=== PATIENT | female | born 1995 | race Two or more races ===

== ENCOUNTER 2021-05-22 00:13 | Inpatient (IN) | payer MEDICAID ==
[~2021-05-22] VITALS: Ht 165.1 cm; Wt 54.5 kg
[2021-05-22] MEDS ORDERED: naloxone 2mg/2ml inj IV STA (01:01)
[2021-05-22] MEDS ORDERED: ondansetron/PF 4mg/2ml inj IV ONE ×2 (01:05)
[2021-05-22] MEDS ORDERED: morphine 4 MG/ML inj SYRINge IV ONE (01:05)
[2021-05-22] MEDS ORDERED: iohexol 350MG/ML 100ml bottle IV ONE (01:13)
[2021-05-22] MEDS ORDERED: propofol 1000mg/100ml bottle 100 ML IV SCH (01:15)
[2021-05-22 01:22] LABS: CLARITY,URINE CLOUDY (Clear); COLOR,URINE YELLOW (Yellow); GLUCOSE, URINE NEGATIVE (Neg); KETONES,URINE NEGATIVE (Neg); LEUKOCYTE ESTERASE ,URINE NEGATIVE (Neg); NITRITES, URINE NEGATIVE (Neg); OCCULT BLOOD,URINE SMALL (Neg); PROTEIN,URINE 100 mg/dl (Neg); URINE HCG NEGATIVE (NEG); UROBILINOGEN,URINE 0.2 E.U/dL (0.2-1.0)
--- NOTE | 2021-05-22 01:36 | NUR ---
PT'S EMERGENCY CONTACTS CALLED, NUMBER FOR [facility] IS DISCONNECTED. PT'S FRIEND DESTINY GUZMÁN WAS CALLED TO NOTIFY FAMILY THAT PT WAS IN THE HOSPITAL AND NOW INTUBATED.
[2021-05-22 01:42] LABS: UA COLLECTION TYPE STRAIGHT CATH
[2021-05-22 01:55] LABS: SQUAMOUS EPITHELIAL CELL,UR FEW /LPF (FEW)
[2021-05-22 01:57] LABS: HYALINE CASTS 0-3 /LPF (NEGATIVE); TRANSITIONAL EPI CELLS,URINE FEW /HPF
[2021-05-22 02:00] LABS: RENAL CELLS, URINE MODERATE /HPF
[2021-05-22] MEDS ORDERED: sodium bicarbonate (8.4%) 1 mEq/ml syringe IV ONE ×4 (02:00→05:25)
[2021-05-22 02:02] LABS: BACTERIA,URINE 1+ /HPF (Neg)
[2021-05-22 02:03] LABS: WBC CLUMPS,URINE MODERATE /HPF (NEGATIVE)
[2021-05-22] MEDS ORDERED: sodium bicarbonate (8.4%) inj. 1 MEQ/ML ML ONE (02:03)
[2021-05-22] MEDS ORDERED: sodium bicarbonate (8.4%) inj. 150 MEQ in dextrose 5%-water 1,000 ML IV SCH (02:05)
[2021-05-22 02:16] LABS: BASOPHILS # (AUTO) 0.1 X10'3 (0-0.2); BASOPHILS % (AUTO) 0.3 % (0-1); EOSINOPHILS % (AUTO) 0.1 % (0-6); LYMPHOCYTES # (AUTO) 3.4 X10'3 (1.1-4.8); LYMPHOCYTES % (AUTO) 14.1 % (21-51); MEAN PLATELET VOLUME 8.6 FL (7.4-10.4); MONOCYTES # (AUTO) 1.1 X10'3 (0-0.9); MONOCYTES % (AUTO) 4.8 % (2-12); NEUTROPHILS # (AUTO) 19.5 X10'3 (1.8-7.7); NEUTROPHILS % (AUTO) 80.7 % (42-75); WHITE BLOOD COUNT 24.2 X10'3 (4.5-11.0)
[2021-05-22 02:25] LABS: URINE AMPHETAMINE SCREEN POSITIVE (Neg); URINE BARBITUATE SCREEN NEGATIVE (Neg); URINE BENZODIAZEPINES SCREEN NEGATIVE (Neg); URINE CANNABINOID SCREEN POSITIVE (Neg); URINE COCAINE SCREEN NEGATIVE (Neg); URINE METHADONE SCREEN NEGATIVE (Neg); URINE PHENCYCLIDINE SCREEN NEGATIVE (Neg)
[2021-05-22 02:26] LABS: URINE OPIATE SCREEN POSITIVE (Neg)
--- NOTE | 2021-05-22 02:28 | NUR ---
GASTROCCULT TEST POSITIVE
[2021-05-22 02:35] LABS: ACETAMINOPHEN 2.5 UG/ML (10-30); ALBUMIN 1.9 G/DL (3.4-5.0); ALKALINE PHOSPHATASE 157 IU/L (46-116); ANION GAP 30 (8-16); BLOOD UREA NITROGEN 35 MG/DL (7-18); CHLORIDE 102 MMOL/L (99-107); CREATININE 2.92 MG/DL (0.40-0.90); ETHANOL < 0.010 GM/DL (0.0-0.010); POTASSIUM 5.7 MMOL/L (3.5-5.1); SODIUM 138 MMOL/L (135-145); TRIGLYCERIDES 89 MG/DL (20-135); eGFR 20 ML/MIN
--- NOTE | 2021-05-22 02:50 | NUR ---
code blue for pt at 0108. see code blue sheet for meds given.
[2021-05-22 02:52] LABS: GASTRIC OCCULT BLOOD POSITIVE (Neg)
[2021-05-22 02:53] LABS: OCCULT BLOOD STOOL POSITIVE (Neg)
[2021-05-22 03:06] LABS: D-DIMER 30.92 MG/L FEU (0-0.50)
[2021-05-22 03:08] LABS: PARTIAL THROMBOPLASTIN TIME 128 SECONDS (22-32)
[2021-05-22 03:11] LABS: ABG BASE EXCESS -31.2 mmol/L (-2.0-2.0); ABG HCO3 2.7 mmol/L (22.0-26.0); ABG OXYGEN SATURATION 96.7 % (94-97); ABG PCO2 (T) 20.1 mmHg (32.0-45.0); ABG PO2 (T) 150.3 mmHg (75.0-100.0); FCOHb 0.8 % (0.0-3.9); FMetHb 0.4 % (0.0-1.5); FO2Hb 95.5 % (94-97); PATIENT TEMPERATURE 33.6; PEEP 5 cm H2O; RESPIRATORY RATE 26 b/min; TIDAL VOLUME 550 mL; TOTAL HEMOGLOBIN 6.6 G/dl (12.0-16.0)
[2021-05-22 03:18] LABS: ALANINE AMINOTRANSFERASE 2244 U/L (12-78); ALBUMIN/GLOBULIN RATIO 0.6 (1.1-1.5); ASPARTATE AMINO TRANSFERASE > 7000 U/L (10-37); BILIRUBIN,TOTAL 1.8 MG/DL (0.1-1.0); CALCIUM 9.8 MG/DL (8.5-10.1); GLUCOSE 95 MG/DL (70-104); TOTAL PROTEIN 5.3 G/DL (6.4-8.2)
[2021-05-22 03:22] LABS: TOTAL CARBON DIOXIDE 6.3 MMOL/L (24-32)
--- NOTE | 2021-05-22 03:22 | NUR ---
upon stabilization of the pt we initiated temperature management of the patient. at 0230 core temp of the patient was 33.6 with goal of getting pt down to 33.0 C to sustain for 24 hours unless otherwise notified by the pt's physician.
[2021-05-22] MEDS ORDERED: NORepinephrine 8mg/ 250ml NS 250 ML IV SCH (03:25)
[2021-05-22 03:31] LABS: RED BLOOD COUNT 2.41 X10'6 (4.20-5.60)
[2021-05-22 03:32] LABS: MEAN CORPUSCULAR HEMOGLOBIN 26.1 PG (27.0-31.0); MEAN CORPUSCULAR HGB CONC 31.6 g/dL (33.0-36.5); MEAN CORPUSCULAR VOLUME 82.4 FL (78-98); RED CELL DISTRIBUTION WIDTH 26.1 % (11.5-14.5)
[2021-05-22 03:36] LABS: HEMATOCRIT 19.9 % (35.0-45.0); HEMOGLOBIN 6.3 g/dl (12.0-16.0)
[2021-05-22 03:37] LABS: PLATELET COUNT 38 X10'3 (140-440)
[2021-05-22 03:45] LABS: ANISOCYTOSIS 2+; PLATELET ESTIMATE DECREASED; TOTAL CELLS COUNTED 100
[2021-05-22 03:46] LABS: BURR CELLS 2+; POLYCHROMASIA FEW
[2021-05-22 03:49] LABS: ELLIPTOCYTES FEW; TOXIC GRANULATION 1+; TOXIC VACUOLATION 2+
[2021-05-22 03:49] LABS: HCG SERUM QL NEGATIVE
[2021-05-22 04:15] VITALS: BP 99/16
[2021-05-22] MEDS ORDERED: tranexamic acid 100mg/ml inj. IV ONE (04:15)
[2021-05-22] MEDS ORDERED: TRANEXAMIC ACID 1 GM IN NACL,ISO-OS 100 ML IV ONE (04:25)
[2021-05-22 04:45] LABS: C-REACTIVE PROTEIN 14.82 MG/DL (0.0-0.5); LACTATE DEHYDROGENASE 5465 U/L (81-234)
[2021-05-22 05:12] LABS: ABG BASE EXCESS -32.5 mmol/L (-2.0-2.0); ABG HCO3 2.1 mmol/L (22.0-26.0); ABG OXYGEN SATURATION 93.5 % (94-97); ABG PCO2 (T) 14.7 mmHg (32.0-45.0); ABG PO2 (T) 95.2 mmHg (75.0-100.0); FMetHb 0.2 % (0.0-1.5); FO2Hb 93.3 % (94-97); PEEP 5 cm H2O; RESPIRATORY RATE 26 b/min; TIDAL VOLUME 550 mL; TOTAL HEMOGLOBIN 8.6 G/dl (12.0-16.0)
[2021-05-22 05:18] LABS: FERRITIN 6121 NG/ML (8-252)
--- NOTE | 2021-05-22 07:08 | NUR ---
PT WENT INTO [facility] AND SUBSEQUENT ASYSTOLE. DR JARA CALLED THE TIME OF AT 0532 TODAY. I CALLED THE [employer] AND THEY ARE COMING TO [facility] WITH AN UNKNOWN ETA. ALSO, CALLED [employer] AND THEY ARE NOT PICKING UP BODY FOR THE DONATION NETWORK. LASTLY, CALLED FAMILY WITH NO SUCCESS. THE POLICE HAVE BEEN SENT TO STOP BY TO SEE IF ANY FAMILY ARE HOME.
--- NOTE | 2021-05-22 07:48 | NUR ---
RAJEEV ARRIVED AT BEDSIDE.
[2021-05-22] MEDS ORDERED: PERFLUTREN PROTEIN-A MICROSPHR (Optison) 0.22 MG/ML 3ML VIAL IV ONE (08:00)
[2021-05-22] MEDS ORDERED: famotidine/PF 10 mg/ml inj IV SCH (08:00)
--- NOTE | 2021-05-22 10:41 | NUR ---
ИВАН APONTE CALL WAS MADE TO FAMILY BY [employer] REQUESTING THAT FAMILY CALL [facility]. PT FATHER CALLED AND WAS NOTIFIED THAT HIS DAUGHTER WAS BROUGHT IN AND HAD THIS MORNING. FATHER HUNG UP DURING NOTIFICATION AND WAS NOT GIVEN INFORMATION REGARDING PT BEING AT THE [facility]S OFFICE. DR HERNANDEZ WAS NOTIFIED OF PHONE CALL.
== END 2021-05-23 16:47 | DRG 816 ==
LOC: ER 00:14 → EDBD 00:14 → ED HOLD 03:21
PROVIDERS: ADMIT Internal Medicine Critical Care Medicine; ATTEND Internal Medicine Critical Care Medicine
PROC: 5A1935Z Respiratory Ventilation, Less than 24 Consecutive Hours (ICD-10-PCS; principal; 2021-05-22)
PROC: 5A12012 Performance of Cardiac Output, Single, Manual (ICD-10-PCS; 2021-05-22)
PROC: 0BH17EZ Insertion of Endotracheal Airway into Trachea, Via Natural or Artificial Opening (ICD-10-PCS; 2021-05-22)
PROC: 30233N1 Transfusion of Nonautologous Red Blood Cells into Peripheral Vein, Percutaneous Approach (ICD-10-PCS; 2021-05-22)
PROC: 30233R1 Transfusion of Nonautologous Platelets into Peripheral Vein, Percutaneous Approach (ICD-10-PCS; 2021-05-22)
PROC: 0D9670Z Drainage of Stomach with Drainage Device, Via Natural or Artificial Opening (ICD-10-PCS; 2021-05-22)
PROC: 06HY33Z Insertion of Infusion Device into Lower Vein, Percutaneous Approach (ICD-10-PCS; 2021-05-22)
PROC: 04HY32Z Insertion of Monitoring Device into Lower Artery, Percutaneous Approach (ICD-10-PCS; 2021-05-22)
PROC: 4A133B1 Monitoring of Arterial Pressure, Peripheral, Percutaneous Approach (ICD-10-PCS; 2021-05-22)
PROC: 4A133J1 Monitoring of Arterial Pulse, Peripheral, Percutaneous Approach (ICD-10-PCS; 2021-05-22)
DX: T40.1X1A Poisoning by heroin, accidental (unintentional), initial encounter (principal); D65 Disseminated intravascular coagulation [defibrination syndrome]; I46.9 Cardiac arrest, cause unspecified; N17.9 Acute kidney failure, unspecified; E87.4 Mixed disorder of acid-base balance; K92.2 Gastrointestinal hemorrhage, unspecified; N93.9 Abnormal uterine and vaginal bleeding, unspecified; Z20.822 Contact with and (suspected) exposure to COVID-19; F15.10 Other stimulant abuse, uncomplicated; E87.5 Hyperkalemia; F12.10 Cannabis abuse, uncomplicated; R74.01 Elevation of levels of liver transaminase levels; Y92.89 Other specified places as the place of occurrence of the external cause
CPT/HCPCS: 36415; 36430; 36600; 71045; 80053; 80305; 80320; 80329; 81001; 81025; 82271; 82272; 82728; 82803; 82948; 83615; 84145; 84443; 84478; 84703; 85007; 85018; 85025; 85379; 85384; 85610; 85730; 86140; 86885; 86900; 86901; 86920; 87077; 87088; 87186; 87635; 92950; 93005; 99281; 99292; G0378; J2704; P9016; P9035; Q9967